=== PATIENT | male | born 1995 | race Caucasian/White ===

== ENCOUNTER 2017-06-06 15:46 | Emergency (ER) | payer OTHER ==
--- NOTE | 2017-06-06 16:32 | EDPHY ---
H & P Time Seen by Provider: 06/06/17 16:00 HPI/ROS: CHIEF COMPLAINT: Abdominal pain for 3 weeks HISTORY OF PRESENT ILLNESS: 21-year-old patient presents with symptoms that started 3 weeks ago when he woke up with nausea at 3:00 a.m.. He describes a consistent pattern with waking up early with nausea and some periumbilical and epigastric pain and some decreased appetite. Pain is crampy in gets better during the day and is not associated with any change with eating or drinking. No diarrhea but had an episode of vomiting yesterday. No previous surgery. No black or bloody stools and no hematemesis or coffee-ground emesis. No recent foreign travel. No previous abdominal surgery. He says that by evening symptoms are usually almost gone. REVIEW OF SYSTEMS: Eye: no change in vision ENT: no sore throat Cardiac: no chest pain or syncope Pulmonary: no cough or SOB Abdomen: HPI Musculoskeletal: no back pain Skin: no rash Neuro: no headache Constitutional: no fever : no urinary symptoms A comprehensive 10 point review of systems is otherwise negative aside from elements mentioned in the history of present illness. PAST MEDICAL HISTORY: Right hand surgery for navicular fracture 1/2 months ago Family history: Negative for gastrointestinal problems at his age Social history: No alcohol General Appearance: Alert and conversant, cooperative. Eyes: No scleral icterus. ENT, Mouth: Normal mucous membranes. Respiratory: Normal respiratory effort, breath sounds equal, lungs are clear to auscultation. Cardiovascular: Regular rate and rhythm. Gastrointestinal: Abdomen is soft and only mildly tender over the epigastrium. Bowel sounds present, nondistended, no hernia. No focal tenderness over McBurney's point or anywhere else. Normal male with normal testicles and external exam. Neurological: Alert and oriented x3. Normally conversant. Face symmetric, normal movement and sensation in all extremities. Skin: Warm and dry, no rashes. Musculoskeletal: No peripheral edema and no joint swelling. Psychiatric: Not agitated. Emergency Department course/MDM: Labs drawn to include CBC chemistry lipase and liver function test. Patient has been on Zantac for the last 3 or 4 days. 1710: Results discussed, normal exam, minimal symptoms at this time. I think the most reasonable thing is 2 weeks of a proton pump inhibitor with outpatient primary care and or gastroenterology follow-up. Smoking Status: Never smoked Constitutional: Initial Vital Signs Temperature (C) 36.8 C 06/06/17 15:49 Heart Rate 92 06/06/17 15:49 Respiratory Rate 16 06/06/17 15:49 Blood Pressure 146/63 H 06/06/17 15:49 O2 Sat (%) 98 06/06/17 15:49 O2 Delivery Mode Room Air Allergies/Adverse Reactions: No Known Allergies Allergy (Unverified 06/06/17 15:48) Home Medications: Medication Instructions Recorded Ondansetron Odt [Zofran Odt] 4 mg PO Q4PRN #6 tab 06/06/17 Pantoprazole Sodium [Protonix] 40 mg PO DAILY #15 tab 06/06/17 Medical Decision Making Differential Diagnosis: Differential considered including but not limited to appendicitis, bowel obstruction, reflux, ulcer, GI bleed, diabetes. - Data Points Laboratory Results: Laboratory Results 06/06/17 16:30 06/06/17 16:30 06/06/17 06/06/17 16:30 16:30 WBC 6.46 10^3/uL 10^3/uL (3.80-9.50) RBC 4.85 10^6/uL 10^6/uL (4.40-6.38) Hgb 14.4 g/dL g/dL (13.7-17.5) Hct 41.2 % % (40.0-51.0) MCV 84.9 fL fL (81.5-99.8) MCH 29.7 pg pg (27.9-34.1) MCHC 35.0 g/dL g/dL (32.4-36.7) RDW 12.4 % % (11.5-15.2) Plt Count 198 10^3/uL 10^3/uL (150-400) MPV 8.8 fL fL (8.7-11.7) Neut % (Auto) 47.0 % % (39.3-74.2) Lymph % (Auto) 43.0 % % (15.0-45.0) Tama % (Auto) 5.3 % % (4.5-13.0) Eos % (Auto) 3.9 % % (0.6-7.6) Baso % (Auto) 0.6 % % (0.3-1.7) Nucleat RBC Rel Count 0.0 % % (0.0-0.2) Absolute Neuts (auto) 3.04 10^3/uL 10^3/uL (1.70-6.50) Absolute Lymphs (auto) 2.78 10^3/uL 10^3/uL (1.00-3.00) Absolute Monos (auto) 0.34 10^3/uL 10^3/uL (0.30-0.80) Absolute Eos (auto) 0.25 10^3/uL 10^3/uL (0.03-0.40) Absolute Basos (auto) 0.04 10^3/uL 10^3/uL (0.02-0.10) Absolute Nucleated RBC 0.00 10^3/uL 10^3/uL (0-0.01) Immature Gran % 0.2 % % (0.0-1.1) Immature Gran # 0.01 10^3/uL 10^3/uL (0.00-0.10) Sodium 146 mEq/L H mEq/L (134-144) Potassium 3.9 mEq/L mEq/L (3.5-5.2) Chloride 107 mEq/L mEq/L (97-110) Carbon Dioxide 25 mEq/l mEq/l (22-31) Anion Gap 14 mEq/L mEq/L (8-16) BUN 10 mg/dL mg/dL (7-23) Creatinine 1.0 mg/dL mg/dL (0.7-1.3) Estimated GFR > 60 Glucose 96 mg/dL mg/dL (70-100) Calcium 9.3 mg/dL mg/dL (8.5-10.4) Total Bilirubin 0.6 mg/dL mg/dL (0.1-1.4) Conjugated Bilirubin 0.3 mg/dL mg/dL (0.0-0.5) Unconjugated Bilirubin 0.3 mg/dL mg/dL (0.0-1.1) AST 19 IU/L IU/L (17-59) ALT 26 IU/L IU/L (21-72) Alkaline Phosphatase 56 IU/L IU/L (38-126) Total Protein 6.7 g/dL g/dL (6.3-8.2) Albumin 4.4 g/dL g/dL (3.5-5.0) Lipase 55 IU/L IU/L (23-300) Departure - Departure Disposition: Home, Routine, Self-Care Clinical Impression: Abdominal pain Qualifiers: Abdominal location: generalized Qualified Code(s): R10.84 - Generalized abdominal pain Condition: Good Instructions: Acute Abdominal Pain (ED) Additional Instructions: Your referred to both gastroenterology and or primary care on-call for unassigned patients from the ER. Please follow-up within 1 week in the office. Referrals: Ty Goldsmith MD [Medical Doctor] - As per Instructions Aliyah Boyce MD [Medical Doctor] - As per Instructions Prescriptions: Ondansetron Odt [Zofran Odt] 4 mg PO Q4PRN #6 tab Pantoprazole Sodium [Protonix] 40 mg PO DAILY #15 tab
[2017-06-06 16:36] LABS: % IMMATURE GRANULYOCYTES 0.2 % (0.0-1.1); ABSOLUTE IMMATURE GRANULOCYTES 0.01 10^3/uL (0.00-0.10); ADD DIFF? NO; ADD MORPH? NO; ADD SCAN? NO; ATYPICAL LYMPHOCYTE FLAG 10 (0-99); FRAGMENT RBC FLAG 0 (0-99); HEMATOCRIT 41.2 % (40.0-51.0); HEMOGLOBIN 14.4 g/dL (13.7-17.5); LEFT SHIFT FLG 0 (0-99); LIPEMIA HEMOLYSIS FLAG 90 (0-99); MEAN CELL HEMOGLOBIN 29.7 pg (27.9-34.1); MEAN CELL VOLUME 84.9 fL (81.5-99.8); MEAN PLATELET VOLUME 8.8 fL (8.7-11.7); PLATELET CLUMPS FLAG 0 (0-99); PLATELET COUNT 198 10^3/uL (150-400); RED BLOOD CELL COUNT 4.85 10^6/uL (4.40-6.38); RED CELL DISTRIBUTION WIDTH 12.4 % (11.5-15.2)
[2017-06-06 16:52] LABS: ALANINE AMINOTRANSFERASE 26 IU/L (21-72); ALBUMIN 4.4 g/dL (3.5-5.0); ALKALINE PHOSPHATASE 56 IU/L (38-126); ANION GAP 14 mEq/L (8-16); ASPARTATE AMINOTRANSFERASE 19 IU/L (17-59); BILIRUBIN,TOTAL 0.6 mg/dL (0.1-1.4); BILIRUBIN-CONJUGATED 0.3 mg/dL (0.0-0.5); BILIRUBIN-UNCONJUGATED 0.3 mg/dL (0.0-1.1); CALCIUM 9.3 mg/dL (8.5-10.4); CARBON DIOXIDE 25 mEq/l (22-31); CHLORIDE 107 mEq/L (97-110); GLOMERULAR FILTRATION RATE > 60; GLUCOSE 96 mg/dL (70-100); POTASSIUM 3.9 mEq/L (3.5-5.2); SODIUM 146 mEq/L (134-144); TOTAL PROTEIN 6.7 g/dL (6.3-8.2)
[2017-06-06 17:48] VITALS: BP 114/80; PULSE 76; RESP 19; TEMP 98.3; O2SAT 95
== END 2017-06-06 17:48 | disposition home or self-care (01) ==
DX: R10.84 Generalized abdominal pain (principal)

== ENCOUNTER 2018-05-06 18:50 | Emergency (ER) | payer BC, OTHER ==
[2018-05-06 19:04] VITALS: BP 123/75
[2018-05-06] MEDS ORDERED: IBUPROFEN 600 MG TAB PO ONE (19:24)
--- NOTE | 2018-05-06 19:28 | EDPHY ---
H & P Time Seen by Provider: 05/06/18 19:16 HPI/ROS: HPI Skateboarding accident, back and wrist pain. 22-year-old male by private vehicle with his girlfriend. This patient was at a skate park. He was skating down a concrete bowl when he fell off his skateboard , landing awkwardly on his right wrist and back. He complains of lower back and coccyx discomfort as well as right wrist pain. He has had previous surgery on his right wrist. He is right-hand dominant. He was not wearing a helmet. He states that he did not hit his head. There was no loss of consciousness. He denies any loss of sensation or weakness in his extremities. No neck pain. ROS: Constitutional: No fever, no chills. No weakness. Respiratory: No cough. No shortness of breath. Cardiac: No chest pain, no palpitations. Gastrointestinal: No abdominal pain, no vomiting, no diarrhea. Reports having an urge to defecate but then does not produce a bowel movement. Genitourinary: No hematuria. No dysuria or increased frequency with urination. Musculoskeletal: As above. No neck pain. As above, no other extremity pain. No saddle anesthesia. Skin: No rashes. No lacerations or abrasions. Neurological: No headache. No focal weakness or altered sensation. Past medical history: Right wrist surgery. Social history: No alcohol. Denies IV drugs or street drugs. Here with his girlfriend. Nonsmoker. Physical Exam: General Appearance: Alert, no distress. This patient is responding to questions appropriately and in full sentences. This patient appears well- hydrated and well-nourished. Head: Normocephalic atraumatic. Face: Facial bones are stable on palpation. Eyes: Pupils equal and round and reactive to light, no pallor or injection. No lid erythema or edema. ENT, Mouth: Mucous membranes moist. Dentition is intact. No malocclusion of the jaw. No tongue lacerations or abrasions. Pharynx is clear. The bilateral nasal canals are clear. No septal hematoma. Respiratory: There are no retractions, lungs are clear to auscultation with good air movement bilaterally. Chest wall is stable to AP and lateral palpation. Cardiovascular: Regular rate and rhythm. No murmur. Gastrointestinal: Abdomen is soft and nontender, no masses, bowel sounds normal. Neurological: Motor sensory function is intact. No saddle anesthesia. Cranial nerves are normal. Cerebellar function intact. Skin: Warm and dry, no rashes. No lacerations, abrasions or contusions. Musculoskeletal: Neck is supple and nontender. The trachea is midline. No midline cervical, thoracic, tenderness on palpation. He does have some vague and mild midline lumbar sacral and coccyx tenderness on palpation. No soft tissue swelling, ecchymosis, edema, fluctuance associated with this. No lacerations or abrasions noted.. No flank tenderness on palpation. Extremities are symmetrical, full range of motion. All joints in the bilateral upper and bilateral lower extremities range without pain or impingement. No tenderness on palpation of the long bones in the bilateral upper and bilateral lower extremities. Psychiatric: No agitation. No depression. Database: EKG: Imaging: Right wrist x-ray series: Hardware in scaphoid appears intact. No acute fracture, subluxation, dislocation. Interpreted by me. LS spine x-ray series: Negative for fracture, subluxation, dislocation. Interpreted by me. Coccyx x-ray series: Negative for fracture, subluxation, dislocation. Interpreted by me. Procedures: Emergency department course: Triage vital signs reviewed and are normal. Patient given 600 mg of ibuprofen. Patient sent for above x-rays. 8:20 p.m., the patient was re-evaluated, resting comfortably at this time. Results of his x-rays were discussed with him and his girlfriend. The right wrist was fitted with a Velcro thumb spica splint for comfort. He feels comfortable going home with his girlfriend. I discussed orthopedic follow-up with him. Return to emergency department precautions were reviewed. I discussed using a donut cushion for his coccyx injury. All of his questions were answered. Return to emergency department precautions reviewed thoroughly. He was discharged in good condition. Differential Diagnosis: The differential diagnosis on this patient includes but is not limited to coccyx contusion, right wrist sprain. Fracture, subluxation, dislocation of right wrist, sacral fracture, status coccyx fracture, significant traumatic spinal injury, significant neurovascular injury unlikely. This represents a partial list of diagnoses considered. These considerations are based on history , physical exam, past history, reassessment and diagnostic testing. Smoking Status: Never smoked Constitutional: Initial Vital Signs Temperature (C) 36.7 C 05/06/18 19: Heart Rate 89 05/06/18 19:01 Respiratory Rate 16 05/06/18 19: Blood Pressure 123/75 H 05/06/18 19:01 O2 Sat (%) 95 05/06/18 19:01 O2 Delivery Mode Room Air Allergies/Adverse Reactions: No Known Allergies Allergy (Verified 05/06/18 19:01) Home Medications: Medication Instructions Recorded Ondansetron Odt [Zofran Odt] 4 mg PO Q4PRN #6 tab 06/06/17 Pantoprazole Sodium [Protonix] 40 mg PO DAILY #15 tab 06/06/17 Medical Decision Making - Data Points Medications Given: Discontinued Medications Ibuprofen (Motrin) 600 mg PO EDNOW ONE Stop: 05/06/18 19:25 Last Admin: 05/06/18 19:27 Dose: 600 mg Departure - Departure Disposition: Home, Routine, Self-Care Clinical Impression: Coccyx contusion, Sprain of wrist, right Condition: Good Instructions: Coccyx Injury (ED), Wrist Sprain (ED) Additional Instructions: Read and follow provided instructions. Follow-up with Orthopedics, Dr. Jasso or 1 of his partners in 2-3 days for re- evaluation. Ibuprofen dosin mg every 6 hours with meals for the next 3 days only. Take only as needed for pain. Return to the emergency department for worsening pain, loss of sensation or weakness in your legs, bowel or bladder incontinence or other serious concerns. Referrals: Mark Jasso MD [Medical Doctor] - As per Instructions
== END 2018-05-06 20:41 | disposition home or self-care (01) ==
DX: S63.501A Unspecified sprain of right wrist, initial encounter (principal); S39.82XA Other specified injuries of lower back, initial encounter; V00.131A Fall from skateboard, initial encounter; Y93.51 Activity, roller skating (inline) and skateboarding; Y92.830 Public park as the place of occurrence of the external cause; Z98.890 Other specified postprocedural states